=== PATIENT | male | born 1980 | race Caucasian/White ===

== ENCOUNTER → 2024-10-31 12:44 | Outpatient (BNVA) | payer MEDICAID, SELFPAY | PROVIDERS: PCP Internal Medicine; Referring Provider Internal Medicine; Visit Provider Internal Medicine Rheumatology | DX: M25.50 Pain in unspecified joint (principal); L40.9 Psoriasis, unspecified; E11.9 Type 2 diabetes mellitus without complications; E78.2 Mixed hyperlipidemia; R53.83 Other fatigue; R63.5 Abnormal weight gain; Z90.49 Acquired absence of other specified parts of digestive tract | CPT/HCPCS: 36415; 72100; 72202; 80053; 80061; 80076; 82565; 83036; 84403; 84439; 84443; 84681; 85025; 85651; 86140; 86200; 86337; 86341; 86431; 86480; 86704; 86803; 86812; 87340 ==

== ENCOUNTER 2024-12-11 14:48 | Outpatient (CLI) | payer MEDICAID, SELFPAY ==
[2024-12-11 18:15] LABS: Follicle Stimulating Hormone 5.7 mIU/mL (1.5-12.4); Prolactin 8.18 ng/mL (4.0-15.2)
== END 2024-12-11 14:49 | disposition home or self-care (01) ==
LOC: LAB 14:49
PROVIDERS: PCP Internal Medicine; Visit Provider Internal Medicine
DX: E78.2 Mixed hyperlipidemia (principal); E11.9 Type 2 diabetes mellitus without complications; R53.83 Other fatigue; R63.5 Abnormal weight gain; R79.89 Other specified abnormal findings of blood chemistry
CPT/HCPCS: 36415; 83001; 83002; 84146; 84403

== ENCOUNTER → 2025-03-29 10:45 | Outpatient (BNVA) | payer MEDICAID, SELFPAY | PROVIDERS: PCP Internal Medicine; Visit Provider Internal Medicine | DX: E11.9 Type 2 diabetes mellitus without complications (principal); R79.89 Other specified abnormal findings of blood chemistry; R63.5 Abnormal weight gain; R53.83 Other fatigue; E78.2 Mixed hyperlipidemia | CPT/HCPCS: 99214 ==

== ENCOUNTER → 2025-07-30 09:48 | Outpatient (BNVA) | payer MEDICAID, SELFPAY | PROVIDERS: PCP Internal Medicine; Visit Provider Internal Medicine Endocrinology, Diabetes & Metabolism | DX: E78.2 Mixed hyperlipidemia (principal); R53.83 Other fatigue; R63.5 Abnormal weight gain; E11.65 Type 2 diabetes mellitus with hyperglycemia; R79.89 Other specified abnormal findings of blood chemistry | CPT/HCPCS: 99213 ==